=== PATIENT | male | born 1955 | race Asian ===

== ENCOUNTER 2018-03-14 08:15 | Day surgery (SDC) | payer OTHER ==
[~2018-03-14 08:15] MED LIST: LIDOCAINE 2% (SDV) 5 ML INJ; PROPOFOL 200 MG INJ
[2018-03-14] MEDS: PHENYLephrine 10% 5 ML OPH OPER ×3 (09:05→09:16)
[2018-03-14] MEDS: MOXIFLOXACIN 0.5% 3 ML OPH OPER (09:06)
[2018-03-14] MEDS: NEPAFENAC 0.1% 3 ML OPH OPER ×3 (09:06→09:16)
[2018-03-14] MEDS: CYCLOPENTOLATE 2% 2 ML OPH OPER ×3 (09:06→09:16)
[2018-03-14] MEDS: LACTATED RINGER'S 1,000 ML IV (10:00)
[2018-03-14] MEDS ORDERED: DIPHENHYDRAMINE 50 MG INJ IV (10:00)
[2018-03-14] MEDS ORDERED: HYDROmorphONE 1 MG/5 ML IV SYRINGE IV ×2 (10:00)
[2018-03-14] MEDS ORDERED: MEPERIDINE 25 MG INJ IV (10:00)
[2018-03-14] MEDS ORDERED: ALBUTEROL 0.083% (NEB) 2.5 MG/3 ML AMP HHN (10:00)
[2018-03-14] MEDS ORDERED: METOCLOPRAMIDE 10 MG INJ IV (10:00)
[2018-03-14] MEDS ORDERED: FENTAnyl 50 MCG/ML VIAL IV ×2 (10:00)
[2018-03-14] MEDS ORDERED: ONDANSETRON 4 MG INJ IV (10:00)
[2018-03-14] MEDS: LIDOCAINE 1% (MPF) 10 ML INJ INJ (12:10)
[2018-03-14] MEDS ORDERED: FENTAnyl 50 MCG/ML VIAL (12:22)
[2018-03-14] MEDS: CARBACHOL 0.01% 1.5 ML OPH INJ RIGHT EYE (12:46)
[2018-03-14] MEDS ORDERED: CARBACHOL 0.01% 1.5 ML OPH INJ (12:49)
[2018-03-14] MEDS ORDERED: LIDOCAINE 1% (MPF) 10 ML INJ (13:08)
[2018-03-14] MEDS ORDERED: LIDOCAINE 2% (SDV) 5 ML INJ (13:08)
[2018-03-14] MEDS ORDERED: EPINEPHrine 1 MG INJ (13:08)
[2018-03-14] MEDS ORDERED: BUPIVACAINE 0.75% (MPF) 10 ML INJ (13:08)
[2018-03-14] MEDS ORDERED: TIMOLOL 0.5% 5 ML OPH (13:08)
== END 2018-03-14 14:40 | disposition home or self-care (01) ==
LOC: SDS 08:15
DX: H25.11 Age-related nuclear cataract, right eye (principal); I10 Essential (primary) hypertension; E11.9 Type 2 diabetes mellitus without complications
CPT/HCPCS: 66984; 82962

== ENCOUNTER 2018-04-20 11:51 | Day surgery (SDC) | payer OTHER ==
[2018-04-20] MEDS: TOBRAMYCIN/DEXAMETH 2.5 ML OPH OPER (12:36)
[2018-04-20] MEDS: PHENYLephrine 10% 5 ML OPH OPER (12:36)
[2018-04-20] MEDS: NEPAFENAC 0.1% 3 ML OPH OPER (12:40)
[2018-04-20] MEDS: SOD CHLORIDE 0.9% 1,000 ML IV (12:53)
[2018-04-20] MEDS: TETRACAINE 0.5% 4 ML OPH RIGHT EYE (13:02)
[2018-04-20] MEDS: BALANCED SALT SOLN 15 ML OPH IRRIG RIGHT EYE (13:02)
[2018-04-20] MEDS: LIDOCAINE 1% (MPF) 10 ML INJ (13:03)
[2018-04-20] MEDS: SODIUM HYALURONATE 14 MG/ML SYG (13:04)
[2018-04-20] MEDS ORDERED: FENTAnyl 50 MCG/ML VIAL ×2 (13:36→13:46)
[2018-04-20] MEDS ORDERED: MIDAZOLAM 1 MG/ML 2 ML INJ (13:36)
[2018-04-20] MEDS ORDERED: OXYCODONE/ACETAMINOPHEN (5/325) TAB PO ×2 (14:00)
[2018-04-20] MEDS ORDERED: FENTAnyl 50 MCG/ML VIAL IV ×3 (14:00)
[2018-04-20] MEDS ORDERED: ONDANSETRON 4 MG INJ IV (14:00)
[2018-04-20] MEDS ORDERED: hydrALAzine 20 MG INJ IV (14:00)
[2018-04-20] MEDS ORDERED: LABETALOL HCL 20MG INJ IV (14:00)
== END 2018-04-20 15:35 | disposition home or self-care (01) ==
LOC: SDS 11:51
DX: H27.131 Posterior dislocation of lens, right eye (principal); E11.9 Type 2 diabetes mellitus without complications; I10 Essential (primary) hypertension
CPT/HCPCS: 66825; 82962

== ENCOUNTER 2018-11-07 09:22 | Day surgery (SDC) | payer OTHER ==
[~2018-11-07 09:22] MED LIST changes: -LIDOCAINE 2% (SDV) 5 ML INJ
[2018-11-07] MEDS ORDERED: LABETALOL HCL 20MG INJ IV (11:00)
[2018-11-07] MEDS ORDERED: ONDANSETRON 4 MG INJ IV (11:00)
[2018-11-07] MEDS ORDERED: FENTAnyl 50 MCG/ML VIAL IV (11:00)
[2018-11-07] MEDS ORDERED: PROPOFOL 60 ML (11:00)
[2018-11-07] MEDS ORDERED: hydrALAzine 20 MG INJ IV (11:00)
[2018-11-07] MEDS ORDERED: EPHEDrine SULFATE 50 MG/5 ML SYG IV (11:00)
[2018-11-07] MEDS ORDERED: ALBUTEROL 0.083% (NEB) 2.5 MG/3 ML AMP HHN (11:00)
[2018-11-07] MEDS ORDERED: LIDOCAINE 2% (SDV) 5 ML INJ (11:01)
== END 2018-11-07 13:30 | disposition home or self-care (01) ==
LOC: GIL 09:22
DX: Z12.11 Encounter for screening for malignant neoplasm of colon (principal); K64.8 Other hemorrhoids; D12.6 Benign neoplasm of colon, unspecified; I10 Essential (primary) hypertension; E11.9 Type 2 diabetes mellitus without complications
CPT/HCPCS: 45380; 82962; 88305